=== PATIENT | female | born 1950 | race Caucasian/White ===

== ENCOUNTER → 2016-12-12 | Outpatient (CLI) | payer BC ==
[~2016-12-12] MED LIST: ASPI-586 PO; LVT.1T PO; MAALIDOBEN PO; RALO60TA PO
[2016-12-12 10:39] VITALS: BP 123/77
--- NOTE | 2016-12-12 10:39 | Urgent Care T Sheet Gen (E) ---
Intake General Temperature (Fahrenheit): 98 Pulse: 100 Blood Pressure Systolic: 123 Blood Pressure Diastolic: 77 Respirations: 18 SPO2: 97 Chief Complaint: UC Ear/Nose/Throat Complaint Description of Symptoms 66 year old female p-resents with sore throat. Pt states she saw PA yesterday and was told it was viral but she has continued to feel worse. States she feel terrible. She was around her grandchildren who had strep and she would like a strep test. States temperature was 99.8 degrees last night. She has muscle aches. She denies any nasal drainage or congestion. States her ears feel full. States she does have a cough but no sputum, soa, or chest pain. Source: Patient Exam Limitations: No limitations History of Present Illness Onset & Duration: Days (4) Timing: Worse Severity: Moderate Modifying Factors: None Associated Symptoms: Cough, Fever/Chills (99.8 degrees), Malaise Recent Trauma: No Similar Sympotms Previously: Yes Allergies: Coded Allergies: No Known Drug Allergies (Unverified , 06/09/16) Home Meds Reported Medications Aspirin (Aspir 81)81 Mg Tablet.dr81 Mg PO DAILY 06/09/16 Raloxifene HCl (Evista)60 Mg Oapyaf56 Mg PO DAILY 06/09/16 Levothyroxine Sodium 100 Mcg Zcewow240 Mcg PO DAILY 06/09/16 Respiratory Constitutional Symptoms: No Chills, No Diaphoresis, Fever (99.8 ) MalaiseNo Weakness EENTM: No Eye pain, No Blurred vision, No Eye tearing, No Ear pain (pressure and fullness), No Ear discharge, No Nose Pain, No Nose Congestion, Throat painNo Throat swelling, No Mouth Pain, No Mouth Swelling Respiratory: CoughNo Short of breath, No Stridor, No Wheezing Cardiovascular: No Chest pain, No Edema, No Palpitations Gastrointestinal/Abdominal: No Abdominal pain, No Diarrhea, No Nausea, No Vomiting Genitourinary: No symptoms reported Musculoskeletal: Other (achy) Skin: No Change in color, No Lesions, No Rash Neurological: No No symptoms reported, No Headache Hematologic/Lymphatic: No symptoms reported Immunologic/Allergies: No symptoms reported All Other Systems Reviewed Remaining Systems: All other systems reviewed with negative findings Past Pssmlex-Nmyvhn-Sjlvno Hx Patient's Social History Alcohol Use: Denies Use Smoking Status: Never smoker Surgeries/Hospitalizations Hospitalization/Surgery Hx: knee scope in december, appy, diagnostic lap, colonoscopy, hernia, breast biopsies Respiratory Respiratory History: None Cardiovascular Cardiovascular History: Other, see comment Comment: hypertriglyceridemia Neuro/Muscular Neuro/Muscular History: Cataracts, Other, see commnent Comment: osteopenia Genitouinary Genitourinary History: None Gastrointestinal GI/Endocrine History: Thyroid disorder Diabetes Diabetes: No Integumentary Integumentary History: None Cancer History of Cancer?: No Physical Exam Physical Exam General Appearance: WD/WN No apparent distress Eyes, Ears, Nose, Throat Ex: PERRL/EOMI Pharyngeal erythema (mild, no exudates , no swelling, patent) Neck Exam: Non tender Full range of motion Supple Normal inspection Normal thyroid Lymphadenopathy (anterior cervical chain) Respiratory Exam: Chest non-tender Lungs clear Normal breath sounds No respiratory distress No accessory muscles used Cardiovascular Exam: Regular rate, rhythm No edema No gallop No JVD No murmur Tachycardia (100) GI/ Exam: Non tender No organomegaly No distention Skin Exam: Normal color Warm/dry/intact No rashes No embolic lesions Extremity Exam: Non-tender Full range of motion Normal capillary refill No pedal edema No calf tenderness Neurologic/Psychiatric Exam: Oriented times 4 No motor deficits No sensory deficits Mood/affect nml Progress/Orders Lab Results Labs Results: Rapid Strep (NEGATIVE) Departure Urgent Care Impression Chief Complaint: UC Ear/Nose/Throat Complaint Impression: Primary Impression: Pharyngitis Qualified Code: J02.8 - Acute pharyngitis due to other specified organisms Departure Disposition: 01 HOME OR SELF-CARE Condition: Stable Referrals: VICKIE MCKAY MD (PCP) Additional Instructions: Discussed with patient that given her Centor score her probability of strep is 1 -2.5%. Pt would like the reassurance of a strep test since she feels bad and her throat is painful. RApid Strep Negative. Pt advised that this is viral. Acknowledged discomfort and encouraged sx relief with Tylenol, naproxen, or Ibuprofen. Encouraged fluids. Magic mouth was 5- 10 ml swish, gargle and spit q 4 hours for pain. RTC if fever > 100.5, persistent sx or failure to improve, or worsening sx. Scripts Diphenhydramine HCl (Maalox/Lidocaine/Benadryl Oral Solution)30 Ml Soln5-10 Ml PO QID Pain #1 BTL Swish, gargle and spit 5- 10 ml every 4- 6 hours prn for pain. Prov:MIKAL KRUSE APRN 12/12/16 End of report . MIKAL KRUSE APRN December 12, 2016 10:20
== END ==
LOC: MHUC 09:41
PROVIDERS: ATTEND Nurse Practitioner Family
DX: J02.8 Acute pharyngitis due to other specified organisms (principal)
CPT/HCPCS: 87880; 99213